=== PATIENT | male | born 1940 | race Caucasian/White ===

== ENCOUNTER 2024-10-18 16:12 | Observation (INO) | payer MEDICARE ==
[2024-10-18] MEDS ORDERED: Senokot S 8.6-50 MG TAB PO PRN (16:27)
[2024-10-18] MEDS ORDERED: Calcium Carbonate 500 MG ChewTAB PO PRN (16:27)
[2024-10-18] MEDS ORDERED: Ondansetron PF 4 MG/2 ML Vial IVP PRN (16:27)
[2024-10-18 16:46] VITALS: BMI 23.1
[2024-10-18 17:31] LABS: Troponin I Less than 0.010 ng/mL (< 0.028)
[2024-10-18] MEDS: Sodium Chloride 0.9% 1,000 ML IV SCH (17:59)
[2024-10-18 20:03] LABS: Troponin I 0.031 ng/mL (< 0.028)
[2024-10-18] MEDS: Memantine 10 MG TAB PO SCH (20:27)
[2024-10-18] MEDS: Doxycycline 100 MG CAP PO SCH (20:27)
[2024-10-18] MEDS: Sertraline 100 MG TAB PO SCH (20:27)
[2024-10-18] MEDS: Acetaminophen 325 MG TAB PO PRN (20:27)
[2024-10-18] MEDS: Donepezil HCl 5 MG TAB PO SCH (20:28)
[2024-10-19 03:52] LABS: #Basophils 0.05 10x3/uL (0.0-0.2); #Eosinophils 0.23 10x3/uL (0.0-0.5); #Monocytes 0.67 10x3/uL (0.0-1.1); #Neutrophils 5.26 10x3/uL (1.5-8.4); %Basophils 0.6 % (0.0-2.0); %Eosinophils 2.9 % (0.0-6.0); %Lymphocytes 21.8 % (18.0-47.0); %Monocytes 8.4 % (0.0-10.0); Hematocrit 43.5 % (38.8-50.0); Hemoglobin 15.4 g/dL (13.5-17.5); Mean Corpuscular HGB CONC 35.4 g/dL (32.0-36.0); Mean Corpuscular Hemoglobin 33.4 pg (27.0-33.0); Mean Corpuscular Volume 94.4 fL (81.2-95.1); Mean Platelet Volume 10.7 fL (7.4-10.4); Platelet Count 142 10x3/uL (150-450); RBC Distribution Width 12.7 % (11.5-14.5); Red Blood Cell (RBC) Count 4.61 10x6/uL (4.32-5.72); White Blood Cell (WBC) Count 7.97 10x3/uL (3.5-10.5)
[2024-10-19 04:16] LABS: ALT (SGPT) 8 U/L (Less than 45); AST (SGOT) 17 U/L (11-34); Albumin 3.8 g/dL (3.1-4.5); Alkaline Phosphatase 93 U/L (40-110); Anion Gap 14 mmol/L (10-20); BUN (Urea Nitrogen) 18 mg/dL (8.4-25.7); Bilirubin, Total 0.7 mg/dL (0.3-1.2); Calc. Creatinine Clearance 53 mL/min (70-130); Calcium 9.1 mg/dL (7.8-10.44); Carbon Dioxide 21 mmol/L (23-31); Chloride 107 mmol/L (98-107); Estimated GFR 77; Globulin 2.6 g/dL (2.4-3.5); Glucose 104 mg/dL (83-110); Magnesium 1.9 mg/dL (1.6-2.6); Protein, Total 6.4 g/dL (5.8-8.1); Sodium 138 mmol/L (136-145)
[2024-10-19] MEDS: Levothyroxine Sodium 75 MCG TAB PO SCH (05:31)
[2024-10-19] MEDS: Aspirin 81 mg Enteric Coated Tablet PO SCH (08:37)
[2024-10-19] MEDS: Cholecalciferol 1,000 UNITS (25 MCG) TAB PO SCH (08:37)
[2024-10-19] MEDS: Enoxaparin 40 MG (0.4 mL) SYRINGE SC SCH (08:38)
[2024-10-19 14:03] VITALS: TEMP 98.2
[2024-10-19 16:31] VITALS: BP 149/73
== END 2024-10-19 18:16 | disposition home or self-care (01) ==
LOC: CSHTELE 16:12
PROVIDERS: ADMIT Internal Medicine; ATTEND Family Medicine
PROC: B246ZZZ Ultrasonography of Right and Left Heart (ICD-10-PCS; principal; 2024-10-18)
DX: R55 Syncope and collapse (principal); S01.81XA Laceration without foreign body of other part of head, initial encounter; F03.90 Unspecified dementia, unspecified severity, without behavioral disturbance, psychotic disturbance, mood disturbance, and anxiety; E03.9 Hypothyroidism, unspecified; I25.10 Atherosclerotic heart disease of native coronary artery without angina pectoris; I10 Essential (primary) hypertension; E78.5 Hyperlipidemia, unspecified; R00.1 Bradycardia, unspecified; I73.9 Peripheral vascular disease, unspecified; K21.9 Gastro-esophageal reflux disease without esophagitis; I34.1 Nonrheumatic mitral (valve) prolapse; I35.0 Nonrheumatic aortic (valve) stenosis; Z88.0 Allergy status to penicillin; Z79.890 Hormone replacement therapy; Z79.82 Long term (current) use of aspirin; Z79.899 Other long term (current) drug therapy; Z90.49 Acquired absence of other specified parts of digestive tract; Z98.890 Other specified postprocedural states
CPT/HCPCS: 83735; 84484 ×2; 93306; 93880; 94760; 96372; 97116; G0378 ×2; J1650; J7030; 36415; 80053; 84443; 85025

== ENCOUNTER 2025-09-11 14:49 | Inpatient (IN) | payer MEDICARE ==
[2025-09-11 16:32] LABS: INR-International Normal Ratio 1.0; PTT 27.3 sec (22.0-33.0); Prothrombin Time 11.4 sec (9.5-12.1)
[2025-09-11 16:35] LABS: ALT (SGPT) 8 U/L (Less than 45); AST (SGOT) 15 U/L (11-34); Albumin 3.7 g/dL (3.1-4.5); Alkaline Phosphatase 88 U/L (40-110); Anion Gap 11 mmol/L (10-20); BUN (Urea Nitrogen) 18 mg/dL (8.4-25.7); Bilirubin, Total 0.8 mg/dL (0.3-1.2); Calc. Creatinine Clearance 0 mL/min (70-130); Calcium 8.3 mg/dL (7.8-10.44); Carbon Dioxide 24 mmol/L (23-31); Chloride 107 mmol/L (98-107); Globulin 2.2 g/dL (2.4-3.5); Glucose 115 mg/dL (83-110); Potassium 4.1 mmol/L (3.5-5.1); Sodium 138 mmol/L (136-145)
[2025-09-11 16:42] LABS: Troponin I Less than 0.010 ng/mL (< 0.028)
[2025-09-11 16:50] LABS: #Basophils 0.04 10x3/uL (0.0-0.2); #Eosinophils 0.12 10x3/uL (0.0-0.5); #Monocytes 0.75 10x3/uL (0.0-1.1); #Neutrophils 9.21 10x3/uL (1.5-8.4); %Basophils 0.4 % (0.0-2.0); %Eosinophils 1.1 % (0.0-6.0); %Lymphocytes 6.1 % (18.0-47.0); %Monocytes 6.9 % (0.0-10.0); %Neutrophils 85.1 % (40.0-75.0); Hematocrit 41.0 % (38.8-50.0); Hemoglobin 13.8 g/dL (13.5-17.5); Mean Corpuscular Hemoglobin 33.1 pg (27.0-33.0); Mean Corpuscular Volume 98.3 fL (81.2-95.1); Platelet Count 112 10x3/uL (150-450); Red Blood Cell (RBC) Count 4.17 10x6/uL (4.32-5.72); White Blood Cell (WBC) Count 10.82 10x3/uL (3.5-10.5)
[2025-09-11 17:30] LABS: Glucose, Urine (Dipstick) Normal (Negative); Leukocyte Negative (Negative); Protein, Urine (Dipstick) 30 mg/dl (Neg-Trace); Specific Gravity, Urine 1.015 (1.005-1.030)
[2025-09-11 17:44] LABS: Bacteria/HPF 1+ HPF (None Seen); CAUTI Indications for Culture Alt mental st,lethar; RBC/HPF Greater than 50 HPF (0-3); WBC/HPF 0-3 HPF (0-3)
[2025-09-11 17:45] LABS: Urine Culture Reflex No No
[2025-09-11] MEDS ORDERED: cefTRIAXone (ROCEPHIN) 2 GM VIAL ONE (18:09)
[2025-09-11] MEDS ORDERED: Azithromycin 500 MG VIAL ONE (18:35)
[2025-09-11] MEDS ORDERED: Calcium Carbonate 500 MG ChewTAB PO PRN (19:29)
[2025-09-11] MEDS ORDERED: Senokot S 8.6-50 MG TAB PO PRN (19:29)
[2025-09-11] MEDS ORDERED: Ondansetron PF 4 MG/2 ML Vial IVP PRN (19:29)
[2025-09-11 19:35] LABS: Platelet Adequacy Comment Appears Decreased
[2025-09-11] MEDS ORDERED: Pantoprazole 40 MG VIAL ONE (20:45)
[2025-09-11] MEDS ORDERED: Magnesium 2 GM/50 ML BAG (IN WATER) ONE (20:45)
[2025-09-11] MEDS ORDERED: Benzonatate 100 MG CAP ONE (20:45)
[2025-09-11] MEDS: Pantoprazole 40 MG VIAL IVP SCH (21:07)
[2025-09-11] MEDS: Benzonatate 100 MG CAP PO SCH (21:07)
[2025-09-11] MEDS: Magnesium 2 GM/50 ML(in water) 2 GM in Premix 1 BAG IVPB SCH (21:07)
[2025-09-11] MEDS: Sertraline 25 MG TAB PO SCH (21:08)
[2025-09-11 22:07] LABS: Legionella Urinary Ag Negative (Negative)
[2025-09-11 22:08] LABS: Strep pneumo Urine Ag NEGATIVE (NEGATIVE)
[2025-09-11 22:17] LABS: Actual Bicarbonate (HCO3v) 23.0 mEq/L (22-28); Analyzer IN Cardio CS ER; Base Excess -2.0 mEq/L (-2 - +2); Calcium, Ionized (venous) 1.10 mmol/L (1.16-1.32); Chloride (VBG) 102 mmol/L (98-106); Hematocrit-VBG 45 % (42.0-52.0); Hemoglobin (Hb) 15.4 g/dL (12.6-17.4); Potassium (VBG) 3.94 mmol/L (3.70-5.30); Puncture Site Other Site; RapidComm Collect By Lab; Sodium 141 mmol/L (133-146)
[2025-09-12 04:32] LABS: Platelet Count 110 10x3/uL (150-450)
[2025-09-12 04:34] LABS: Anion Gap 12 mmol/L (10-20); BUN (Urea Nitrogen) 15 mg/dL (8.4-25.7); Calc. Creatinine Clearance 44 mL/min (70-130); Calcium 8.4 mg/dL (7.8-10.44); Carbon Dioxide 26 mmol/L (23-31); Chloride 105 mmol/L (98-107); Glucose 104 mg/dL (83-110); Hematocrit 42.1 % (38.8-50.0); Hemoglobin 14.1 g/dL (13.5-17.5); Magnesium 2.3 mg/dL (1.6-2.6); Mean Corpuscular Hemoglobin 33.2 pg (27.0-33.0); Mean Corpuscular Volume 99.1 fL (81.2-95.1); Potassium 3.9 mmol/L (3.5-5.1); Red Blood Cell (RBC) Count 4.25 10x6/uL (4.32-5.72); Sodium 139 mmol/L (136-145); White Blood Cell (WBC) Count 9.13 10x3/uL (3.5-10.5)
[2025-09-12 04:38] LABS: Troponin I Less than 0.010 ng/mL (< 0.028)
[2025-09-12 04:39] LABS: #Basophils 0.04 10x3/uL (0.0-0.2); #Eosinophils 0.39 10x3/uL (0.0-0.5); #Monocytes 0.66 10x3/uL (0.0-1.1); #Neutrophils 6.98 10x3/uL (1.5-8.4); %Basophils 0.4 % (0.0-2.0); %Eosinophils 4.3 % (0.0-6.0); %Lymphocytes 11.4 % (18.0-47.0); %Monocytes 7.2 % (0.0-10.0); %Neutrophils 76.5 % (40.0-75.0)
[2025-09-12] MEDS: FLU (Fluad Triv) 25-26 (65UP)PF 45 MCG/0.5 ML Syringe IM ONE (04:43)
[2025-09-12] MEDS: Furosemide 20 MG (2 mL) VIAL SLOW IVP SCH (07:12)
[2025-09-12] MEDS: Enoxaparin 40 MG (0.4 mL) SYRINGE SC SCH (09:54)
[2025-09-12] MEDS: Cholecalciferol 1,000 UNITS (25 MCG) TAB PO SCH (09:56)
[2025-09-12] MEDS: Pantoprazole 40 MG DR.TAB PO SCH (09:56)
[2025-09-12] MEDS: Aspirin 81 mg Enteric Coated Tablet PO SCH (09:56)
[2025-09-12 13:14] VITALS: BMI 18.9
[2025-09-12] MEDS: Acetaminophen 325 MG TAB PO PRN (15:15)
[2025-09-12] MEDS: cefTRIAXone\\ROCEPHIN 2 GM in Sodium Chloride 0.9% 100 ML IVPB SCH (18:04)
[2025-09-13] MEDS: Oxybutynin 5 MG TAB PO SCH (00:05)
[2025-09-13] MEDS: diphenhydrAMINE 25 MG CAP PO SCH (01:35)
[2025-09-13 05:15] LABS: #Basophils 0.04 10x3/uL (0.0-0.2); #Eosinophils 0.41 10x3/uL (0.0-0.5); #Monocytes 0.73 10x3/uL (0.0-1.1); #Neutrophils 6.01 10x3/uL (1.5-8.4); %Basophils 0.5 % (0.0-2.0); %Eosinophils 5.0 % (0.0-6.0); %Lymphocytes 12.2 % (18.0-47.0); %Monocytes 8.9 % (0.0-10.0); %Neutrophils 73.2 % (40.0-75.0); Hematocrit 41.0 % (38.8-50.0); Hemoglobin 14.3 g/dL (13.5-17.5); Mean Corpuscular Hemoglobin 34.0 pg (27.0-33.0); Mean Corpuscular Volume 97.4 fL (81.2-95.1); Platelet Count 118 10x3/uL (150-450); Red Blood Cell (RBC) Count 4.21 10x6/uL (4.32-5.72); White Blood Cell (WBC) Count 8.21 10x3/uL (3.5-10.5)
[2025-09-13 05:22] LABS: Albumin 3.4 g/dL (3.1-4.5); Anion Gap 13 mmol/L (10-20); BUN (Urea Nitrogen) 26 mg/dL (8.4-25.7); BUN/Creatinine Ratio 24.07; Calc. Creatinine Clearance 38 mL/min (70-130); Calcium 8.9 mg/dL (7.8-10.44); Carbon Dioxide 26 mmol/L (23-31); Chloride 103 mmol/L (98-107); Glucose 107 mg/dL (83-110); Potassium 4.1 mmol/L (3.5-5.1); Sodium 138 mmol/L (136-145)
[2025-09-13] MEDS ORDERED: Enoxaparin 30 MG (0.3 mL) SYRINGE SC SCH (09:00)
[2025-09-13] MEDS: Finasteride 5 MG TAB PO SCH (09:16)
[2025-09-13] MEDS: QUEtiapine 25 MG TAB PO SCH (22:09)
[2025-09-14 05:39] LABS: #Basophils 0.03 10x3/uL (0.0-0.2); #Eosinophils 0.31 10x3/uL (0.0-0.5); #Monocytes 0.76 10x3/uL (0.0-1.1); #Neutrophils 3.77 10x3/uL (1.5-8.4); %Basophils 0.5 % (0.0-2.0); %Eosinophils 4.9 % (0.0-6.0); %Lymphocytes 22.3 % (18.0-47.0); %Monocytes 12.0 % (0.0-10.0); %Neutrophils 59.7 % (40.0-75.0); Hematocrit 38.0 % (38.8-50.0); Hemoglobin 13.1 g/dL (13.5-17.5); Mean Corpuscular Hemoglobin 33.8 pg (27.0-33.0); Mean Corpuscular Volume 97.9 fL (81.2-95.1); Platelet Count 111 10x3/uL (150-450); Red Blood Cell (RBC) Count 3.88 10x6/uL (4.32-5.72); White Blood Cell (WBC) Count 6.32 10x3/uL (3.5-10.5)
[2025-09-14 05:52] LABS: Albumin 3.1 g/dL (3.1-4.5); Anion Gap 10 mmol/L (10-20); BUN (Urea Nitrogen) 17 mg/dL (8.4-25.7); BUN/Creatinine Ratio 18.48; Calc. Creatinine Clearance 45 mL/min (70-130); Calcium 8.6 mg/dL (7.8-10.44); Carbon Dioxide 26 mmol/L (23-31); Chloride 105 mmol/L (98-107); Glucose 101 mg/dL (83-110); Potassium 3.9 mmol/L (3.5-5.1); Sodium 137 mmol/L (136-145)
[2025-09-14] MEDS: Guaifenesin DM 100-10/5 ML UDCUP PO PRN (13:55)
[2025-09-15 04:27] LABS: Platelet Count 113 10x3/uL (150-450)
[2025-09-15 04:28] LABS: #Basophils 0.04 10x3/uL (0.0-0.2); #Eosinophils 0.36 10x3/uL (0.0-0.5); #Monocytes 0.71 10x3/uL (0.0-1.1); #Neutrophils 3.42 10x3/uL (1.5-8.4); %Basophils 0.6 % (0.0-2.0); %Eosinophils 5.6 % (0.0-6.0); %Lymphocytes 28.5 % (18.0-47.0); %Monocytes 11.1 % (0.0-10.0); %Neutrophils 53.7 % (40.0-75.0); Hematocrit 41.3 % (38.8-50.0); Hemoglobin 14.2 g/dL (13.5-17.5); Mean Corpuscular Hemoglobin 33.1 pg (27.0-33.0); Mean Corpuscular Volume 96.3 fL (81.2-95.1); Red Blood Cell (RBC) Count 4.29 10x6/uL (4.32-5.72); White Blood Cell (WBC) Count 6.38 10x3/uL (3.5-10.5)
[2025-09-15 04:42] LABS: Albumin 3.2 g/dL (3.1-4.5); Anion Gap 13 mmol/L (10-20); BUN (Urea Nitrogen) 14 mg/dL (8.4-25.7); BUN/Creatinine Ratio 16.87; Calc. Creatinine Clearance 50 mL/min (70-130); Calcium 8.9 mg/dL (7.8-10.44); Carbon Dioxide 25 mmol/L (23-31); Chloride 106 mmol/L (98-107); Glucose 111 mg/dL (83-110); Potassium 4.0 mmol/L (3.5-5.1); Sodium 140 mmol/L (136-145)
[2025-09-15 12:46] VITALS: BP 120/67; TEMP 98.3
== END 2025-09-15 12:48 | disposition home or self-care (01) | DRG 193 ==
LOC: CSHERS 14:49 → CSHERHOLD 19:27 → CSHICU 09-12 00:29 → CSHTELE 09-12 08:09
PROVIDERS: ADMIT Student in an Organized Health Care Education/Training Program; ATTEND Student in an Organized Health Care Education/Training Program
PROC: 0T9B70Z Drainage of Bladder with Drainage Device, Via Natural or Artificial Opening (ICD-10-PCS; principal; 2025-09-12)
PROC: 3E03329 Introduction of Other Anti-infective into Peripheral Vein, Percutaneous Approach (ICD-10-PCS; 2025-09-14)
DX: J12.9 Viral pneumonia, unspecified (principal); G93.41 Metabolic encephalopathy; R31.9 Hematuria, unspecified; I10 Essential (primary) hypertension; Z66 Do not resuscitate; I25.10 Atherosclerotic heart disease of native coronary artery without angina pectoris; E03.9 Hypothyroidism, unspecified; F03.90 Unspecified dementia, unspecified severity, without behavioral disturbance, psychotic disturbance, mood disturbance, and anxiety; E86.0 Dehydration; R09.89 Other specified symptoms and signs involving the circulatory and respiratory systems; I49.8 Other specified cardiac arrhythmias; D69.6 Thrombocytopenia, unspecified; M19.90 Unspecified osteoarthritis, unspecified site; R33.9 Retention of urine, unspecified; N40.0 Benign prostatic hyperplasia without lower urinary tract symptoms; Z90.49 Acquired absence of other specified parts of digestive tract; Z98.890 Other specified postprocedural states; Z88.0 Allergy status to penicillin
CPT/HCPCS: 36415; 36416; 51701; 70450; 70551; 71045; 71250; 80048; 80053; 80069; 81001; 82805; 83605; 83735; 83880; 84145; 84443; 84484; 85025; 85610; 85730; 86140; 87040; 87081; 87086; 87428; 87430; 87449; 87899; 93005; 93306; 94760; 96365; 96366; 96375; J0456; J0696; J1650; J1940; J2270; J2470; J3475; J7120